=== PATIENT | male | born 1980 | race Caucasian/White ===

== ENCOUNTER → 2018-06-25 | Outpatient (CLI) | payer OTHER ==
--- NOTE | 2018-06-25 11:10 | RADIOLOGY IMAGING REPORT ---
FACILITY: [facility] - [place] PATIENT NAME: Elvis Mace : 1980 MR: [id number] V: [id number] EXAM DATE: ORDERING PHYSICIAN: KASSY PICHARDO TECHNOLOGIST: Location: [facility] Patient: Elvis Mace : 1980 Visit/Account:[id number] Date of Sevice: 06/25/2018 EXAMINATION: Abdominal ultrasound complete HISTORY: Left upper quadrant abdomen pain times several months, no injury COMPARISON: None. FINDINGS: Gallbladder: Multiple stones are noted within the gallbladder. Gallbladder wall does not appear thic kened and there was no evidence of a positive Neal sign. Liver: There is increased echogenicity throughout the liver which can be seen with fatty infiltration or other infiltrative process. Common duct: Normal measuring 2.9 mm. Pancreas: Partially obscured by bowel gas although the visualized portions grossly unremarkable Spleen: Normal in size and echogenicity measuring 11.2 cm in length. Kidneys: Normal in size and echogenicity, the right measures 10 cm in length, and the left 10.5 cm. No hydronephrosis. There is a 1.7 cm cyst projecting from the upper pole of the left kidney Upper abdominal aorta and IVC: Negative. Ascites: None. IMPRESSION: Cholelithiasis although no evidence of biliary ductal dilatation or positive Neal sign Increased echogenicity throughout liver which can be seen with fatty infiltration or other infiltrati ve process Report Dictated By: Ruchi Valencia MD at 06/25/2018 11:03 AM Report E-Signed By: Ruchi Valencia MD at 06/25/2018 11:05 AM WSN:[email or web address]
--- NOTE | 2018-06-25 11:12 | RADIOLOGY IMAGING REPORT ---
FACILITY: [facility] - [place] PATIENT NAME: Elvis Mace : 1980 MR: [id number] V: [id number] EXAM DATE: ORDERING PHYSICIAN: KASSY PICHARDO TECHNOLOGIST: Location: [facility] [place] Patient: Elvis Mace : 1980 Visit/Account:[id number] Date of Sevice: 06/25/2018 RIBS LEFT HISTORY: Left rib pain, no known injury. ADDITIONAL HISTORY: None. COMPARISON: None. FINDINGS: Frontal view the chest and 3 coned-down views of the left ribs were obtained. A BB has been placed a t the site of the patient's pain There is no rib fracture identified. No lytic or sclerotic bony lesion. Cardiomediastinal silhouette is within normal limits. There is no infiltrate or pleural effusion. N o pneumothorax. 4 mm nodule in the left mid to lower lung is dense for its size and is probably a ca lcified granuloma. IMPRESSION: 1. No rib fracture or other lytic or sclerotic bony lesion. 2. No evidence of acute cardiopulmonary abnormality. 3. Findings suggesting old granulomatous disease. Report Dictated By: Shell Martinez MD at 06/25/2018 10:32 AM Report E-Signed By: Shell Martinez MD at 06/25/2018 11:07 AM WSN:[email or web address] [id number]
== END ==
LOC: US 09:05
PROVIDERS: ATTEND Family Medicine
DX: K80.20 Calculus of gallbladder without cholecystitis without obstruction (principal)
CPT/HCPCS: 71100; 76700